=== PATIENT | female | born 1975 | race Caucasian/White ===

== ENCOUNTER 2016-09-22 13:27 | Emergency (ER) | payer OTHER ==
[2016-09-22 13:59] VITALS: BMI 26.6
[2016-09-22 14:05] VITALS: BP 110/70; PULSE 86; RESP 18; TEMP 98.8; O2SAT 97
[2016-09-22 14:52] LABS: RBC URINE 1 /hpf (0-3); URINE BACTERIA RARE (<OCC); URINE BILIRUBIN NEGATIVE (NEGATIVE); URINE BLOOD 1+ (NEGATIVE); URINE COLOR Yellow (YELLOW); URINE GLUCOSE (UA) NORMAL (Normal); URINE KETONE NEGATIVE (NEGATIVE); URINE LEUKOCYTE ESTERASE NEG Leu/uL (Negative); URINE PROTEIN NEGATIVE (NEGATIVE); URINE UROBILINOGEN NORMAL mg/dL (0.2-1.0); WBC URINE 1 /hpf (0-5)
--- NOTE | 2016-09-22 15:02 | C.PDOC ---
History Of Present Illness The patient, a 40 y/o female, presents to the ED for evaluation of lower back pain which began around 1 week ago. Patient states the pain is worse on the left side of her back and is non-radiating. Patient also reports increased urinary frequency and notes her urine appears darker than usual. She denies fever, chills, dysuria, recent falls, urinary/bowel incontinence, and extremity numbness/weakness. Time Seen by Provider: 09/22/16 14:08 Chief Complaint (Nursing): Back Pain History Per: Patient History/Exam Limitations: no limitations Onset/Duration Of Symptoms: Other (around 1 week ) Current Symptoms Are (Timing): Still Present Quality Of Discomfort: "Pain" Previous Symptoms: Back Pain Associated Symptoms: denies: Incontinence, New Weakness, New Numbness Additional History Per: Patient Past Medical History Reviewed: Historical Data, Nursing Documentation, Vital Signs Vital Signs: Last Vital Signs Temp 98.8 F 09/22/16 14:00 Pulse 86 09/22/16 14:00 Resp 18 09/22/16 14:00 BP 110/70 09/22/16 14:00 Pulse Ox 97 09/22/16 16:50 - Medical History PMH: Denies: Chronic Kidney Disease - [facility] Procedures INJECT/INFUSE NEC (02/26/13) RESECTION OF BI FALLOPIAN TUBE, VIA OPENING W PERC ENDO (01/23/16) RESECTION OF BILATERAL OVARIES, VIA OPENING W PERC ENDO (01/23/16) RESECTION OF UTERUS, VIA OPENING W PERC ENDO (01/23/16) Family History: States: Unknown Family Hx - Social History Hx Tobacco Use: No Hx Alcohol Use: No Hx Substance Use: No - Immunization History Hx Tetanus Toxoid Vaccination: No Hx Influenza Vaccination: No Hx Pneumococcal Vaccination: No Review Of Systems Except As Marked, All Systems Reviewed And Found Negative. Constitutional: Negative for: Fever, Chills Genitourinary: Positive for: Frequency, Other ("dark" urine ). Negative for: Dysuria Musculoskeletal: Positive for: Back Pain (lower, left>right) Neurological: Negative for: Weakness, Numbness Physical Exam - Physical Exam Appears: Non-toxic, No Acute Distress Skin: Normal Color, Warm, Dry Head: Atraumatic, Normacephalic Eye(s): bilateral: Normal Inspection Oral Mucosa: Moist Neck: Normal ROM, Supple Chest: Symmetrical, No Deformity, No Tenderness Cardiovascular: Rhythm Regular, No Murmur Respiratory: Normal Breath Sounds, No Rales, No Rhonchi, No Wheezing Gastrointestinal/Abdominal: Soft, No Tenderness, No Guarding, No Rebound Back: No CVA Tenderness, Paraspinal Tenderness (mild paralumbar tenderness on palpation, left>right) Extremity: Normal ROM, Capillary Refill (less than 2 seconds) Pulses: Left Dorsalis Pedis: Normal, Right Dorsalis Pedis: Normal Neurological/Psych: Oriented x3, Normal Speech, Normal Cognition, Normal Motor, Normal Sensation Gait: Steady ED Course And Treatment O2 Sat by Pulse Oximetry: 97 (on RA) Pulse Ox Interpretation: Normal Medical Decision Making Medical Decision Making: Impression: 40 y.o female with low back pain for one week Differential diagnosis: cystitis, pyelonephritis, muscular strain, herniated disk Plan: * UA * Toradol Progress: UA reviewed and negative. On re-examination, patient is resting comfortably in no acute distress. Patient reports improvement of symptoms. Patient feels comfortable going home and will be discharged. Patient given follow up instructions. Instructed to return to ER if symptoms worsen or new symptoms arise. Disposition Counseled Patient/Family Regarding: Need For Followup, Rx Given - Disposition Referrals: Marbella De La Torre MD [Staff Provider] - Disposition: HOME/ ROUTINE Disposition Time: 15:02 Condition: IMPROVED Additional Instructions: Los resultados de avina orina fueron normales, sin infeccin. Por favor, tome naproxeno y flexeril para avina dolor de espalda muscular. 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 - Scribe Statement The provider has reviewed the documentation as recorded by the Scribe (Ce Germain) All medical record entries made by the Scribe were at my direction and personally dictated by me. I have reviewed the chart and agree that the record accurately reflects my personal performance of the history, physical exam, medical decision making, and the department course for this patient. I have also personally directed, reviewed, and agree with the discharge instructions and disposition.
== END 2016-09-22 15:28 | disposition home or self-care (01) ==
LOC: C.ER 13:27
DX: M54.5 Low back pain (principal)
CPT/HCPCS: 81001; 84703; 96372; 99284; J1885

== ENCOUNTER 2017-04-22 17:41 | Emergency (ER) | payer OTHER ==
[2017-04-22 17:41] VITALS: BMI 32.7
[2017-04-22 17:50] VITALS: BP 128/90; PULSE 83; RESP 20; TEMP 98.5; O2SAT 99
--- NOTE | 2017-04-22 19:02 | C.PDOC ---
History Of Present Illness 41 yr old female presents to the ER with complaints of headache since waking up this morning. Patient states she woke up with swelling to the right eye and is associated iwth frontal headache. Patient reports similar headache 3 weeks ago which lasted 1 day and resolved on its own. However, patient states this headache is lasting longer. Patient denies trauma, fever, vision changes, cough , nausea, vomiting, dizziness, weakness or numbness. Time Seen by Provider: 04/22/17 18:19 Chief Complaint (Nursing): Headache History Per: Patient History/Exam Limitations: no limitations Onset/Duration Of Symptoms: Days Past Medical History Reviewed: Historical Data, Nursing Documentation, Vital Signs Vital Signs: Last Vital Signs Temp 98.5 F 04/22/17 17:49 Pulse 83 04/22/17 17:49 Resp 20 04/22/17 17:49 BP 128/90 04/22/17 17:49 Pulse Ox 99 04/22/17 21:32 - [facility] Procedures INJECT/INFUSE NEC (02/26/13) RESECTION OF BI FALLOPIAN TUBE, VIA OPENING W PERC ENDO (01/23/16) RESECTION OF BILATERAL OVARIES, VIA OPENING W PERC ENDO (01/23/16) RESECTION OF UTERUS, VIA OPENING W PERC ENDO (01/23/16) Family History: States: No Known Family Hx - Social History Hx Tobacco Use: No Hx Alcohol Use: No Hx Substance Use: No - Immunization History Hx Tetanus Toxoid Vaccination: No Hx Influenza Vaccination: No Hx Pneumococcal Vaccination: No Review Of Systems Except As Marked, All Systems Reviewed And Found Negative. Constitutional: Negative for: Fever Eyes: Negative for: Vision Change Respiratory: Negative for: Cough Gastrointestinal: Negative for: Nausea, Vomiting Neurological: Positive for: Headache. Negative for: Weakness, Numbness, Dizziness Physical Exam - Physical Exam Appears: Non-toxic, No Acute Distress Skin: Warm, Dry, No Rash Head: Atraumatic, Normacephalic Eye(s): bilateral: PERRL, EOMI, right: Other (Stye. No evidence of swelling or infection. No foreign body seen) Oral Mucosa: Moist Neck: Normal, Normal ROM, Supple Chest: Symmetrical, No Tenderness Cardiovascular: Rhythm Regular, No Friction Rub, No Murmur Respiratory: Normal Breath Sounds, No Rales, No Rhonchi, No Stridor, No Wheezing Gastrointestinal/Abdominal: Soft, No Tenderness Back: Normal Inspection Extremity: Normal ROM, No Swelling Neurological/Psych: Oriented x3, Normal Speech, Normal Cranial Nerves, Normal Motor, Normal Sensation Gait: Steady ED Course And Treatment O2 Sat by Pulse Oximetry: 99 (RA) Pulse Ox Interpretation: Normal Medical Decision Making Medical Decision Making: PLAN: * CT - Head * Tylenol PO CT HEad was unremarkable. Patient was informed that the eye exam appears normal and she states that the sty is chronic. Patient states that the tylenol only helped mildly for the pain. Toradol IM and reglan PO ordered. On second re-exam, the patient reports improvement of symptoms. Lungs are CTA, heart is RRR, abdomen is soft, non-tender and patient is tolerating PO well. ambulatory in the ED steady gait, Follow up with the medical doctor within 1-2 days. Return if worsened. Disposition - Disposition Referrals: Marbella De La Torre MD [Staff Provider] - Disposition: HOME/ ROUTINE Disposition Time: 21:24 Condition: GOOD Additional Instructions: Follow up with the Urologist within 1-2 days. Return if worsened. 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 - Scribe Statement The provider has reviewed the documentation as recorded by the Scribe Anna Astorga All medical record entries made by the Scribe were at my direction and personally dictated by me. I have reviewed the chart and agree that the record accurately reflects my personal performance of the history, physical exam, medical decision making, and the department course for this patient. I have also personally directed, reviewed, and agree with the discharge instructions and disposition.
--- NOTE | 2017-04-22 20:36 | CT ---
EXAM: CT Head Without Intravenous Contrast CLINICAL HISTORY: 41 years old, female; Pain; Headache; Headache not specified TECHNIQUE: Axial computed tomography images of the head/brain without intravenous contrast. This CT exam was performed using one or more of the following dose reduction techniques: automated exposure control, adjustment of the mA and/or kV according to patient size, and/or use of iterative reconstruction technique. EXAM DATE/TIME: 04/22/2017 6:40 PM COMPARISON: There are no prior studies for comparison. FINDINGS: Brain: Ventricles are normal in size and configuration. There is no midline shift. There are no intra-axial or extra-axial mass lesions or areas of hemorrhage. There are no abnormal fluid collections. Encarnacion-white differentiation is maintained. Ventricles: See above. Bones: Cranial vault is intact. Soft tissues: unremarkable Sinuses: There is no acute sinusitis. Ears and mastoids: Middle ears and mastoids are unremarkable Orbits: Orbital contents are unremarkable. IMPRESSION: No acute intracranial abnormality
== END 2017-04-22 21:37 | disposition home or self-care (01) ==
LOC: C.ER 17:41
DX: G43.909 Migraine, unspecified, not intractable, without status migrainosus (principal)
CPT/HCPCS: 70450; 96372; 99284; J1885

== ENCOUNTER 2017-06-19 07:24 | Inpatient (IN) | payer OTHER ==
[2017-05-29 09:19] VITALS: BMI 33.5
--- NOTE | 2017-06-19 01:13 | CP.PCM.HP ---
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 Risks, benefits and alternatives has been discussed and the Pt has obtained a consent. Present on Admission - Present on Admission Any Indicators Present on Admission: No Past Patient History - Infectious Disease Hx of Infectious Diseases: None - Past Medical History & Family History Past Medical History?: Yes - Past Social History Smoking Status: Never Smoked - CARDIAC Hx Cardiac Disorders: No - PULMONARY Hx Respiratory Disorders: No - NEUROLOGICAL Hx Neurological Disorder: No - HEENT Hx HEENT Problems: No - RENAL Hx Chronic Kidney Disease: No - ENDOCRINE/METABOLIC Hx Endocrine Disorders: No - HEMATOLOGICAL/ONCOLOGICAL Hx Blood Disorders: No - INTEGUMENTARY Hx Dermatological Problems: No - MUSCULOSKELETAL/RHEUMATOLOGICAL Hx Musculoskeletal Disorders: Yes Other/Comment: PER DR. HUANG'S NOTES: "HAD CT SCAN DONE AT [facility] INDICATING FLUID FILLED HERNIA SAC." - GASTROINTESTINAL Hx Gastrointestinal Disorders: Yes Other/Comment: LEFT INGUINAL HERNIA - GENITOURINARY/GYNECOLOGICAL Hx Genitourinary Disorders: Yes Hx Urinary Tract Infection: Yes ( 3 months ago) Other/Comment: fibroma - removed : 2 Para: 2 - PSYCHIATRIC Hx Psychophysiologic Disorder: No Hx Substance Use: No - SURGICAL HISTORY Hx Surgeries: Yes (LAVH) Hx Herniorrhaphy: Yes (left INGUINAL HERNIA REPAIR) Hx Hysterectomy: Yes (2015) - ANESTHESIA Hx Anesthesia: Yes Hx Anesthesia Reactions: No Hx Malignant Hyperthermia: No Has any member of the family had a problem w/ anesthesia?: No Meds Home Medications: Home Medication List Medication Instructions Recorded Confirmed Type Ibuprofen [Motrin Tab] 600 mg PO Q6H PRN #28 tab 06/21/17 Rx oxyCODONE/Acetaminophen [Percocet 1 tab PO Q4H PRN #20 tab 06/21/17 Rx 5/325 mg Tab] Allergies/Adverse Reactions: Allergies Allergy/AdvReac Type Severity Reaction Status Date / Time No Known Allergies Allergy Verified 04/22/17 17:49 Physical Exam - Constitutional Appears: Well - Respiratory Exam Respiratory Exam: Clear to Auscultation Bilateral, NORMAL BREATHING PATTERN - Cardiovascular Exam Cardiovascular Exam: REGULAR RHYTHM, RRR - GI/Abdominal Exam GI & Abdominal Exam: Normal Bowel Sounds, Soft - Back Exam Back exam: NORMAL INSPECTION - Neurological Exam Neurological exam: Alert, Oriented x3 Results - Labs Result Diagrams: 06/20/17 06:54 06/20/17 06:54 Assessment & Plan (1) Vaginal vault prolapse Status: Acute (2) Cystocele Status: Acute (3) Rectocele Status: Acute (4) Status post vaginal hysterectomy Status: Acute - Assessment and Plan (Free Text) Plan: 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 - Date & Time Date: 06/19/17 Time: 07:30 Decision To Admit - Pt Status Changed To: Hospital Disposition Of: Inpatient - Admit Certification Admit to Inpatient:: After my assessment, the patient will require hospitalization for at least two midnights. This is because of the severity of symptoms shown, intensity of services needed, and/or the medical risk in this patient being treated as an outpatient. - InPatient: Physician Admission Certification:: reena - . 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
[2017-06-19] MEDS ORDERED: Bacitracin 50,000 UNIT in Sodium Chloride 0.9% Irrig 1,000 ML IR SCH (09:00)
[2017-06-19] MEDS ORDERED: Vasopressin 20 Units/ml Inj ONE ×2 (09:12→11:15)
[2017-06-19] MEDS ORDERED: Midazolam 2 MG/2 ML VIAL ONE (09:38)
[2017-06-19] MEDS ORDERED: Succinylcholine Chloride 20 mg/ml Syr (5 ml) IV ONE (09:39)
[2017-06-19] MEDS ORDERED: Lidocaine Hydrochloride 5 ML INJ ONE (09:39)
[2017-06-19] MEDS ORDERED: Propofol 10 mg/ml Inj (20 ML) ONE (09:39)
[2017-06-19] MEDS ORDERED: Rocuronium 10 mg/ml (5 ml) ONE (09:39)
[2017-06-19] MEDS ORDERED: Lactated Ringer's 1,000 ML IV ONE ×4 (09:46→15:00)
[2017-06-19] MEDS: cefOXitin IV 2 gm in Dextrose 2 GM/50 ML BAG IVPB ONE ×2 (10:10→10:24)
[2017-06-19] MEDS ORDERED: Clindamycin 2% Vaginal Cream(40 gm) VAG ONE (11:00)
[2017-06-19] MEDS ORDERED: Morphine 4 MG/ML VIAL ONE (12:05)
[2017-06-19] MEDS: HYDROmorphone 0.5 mg/0.5 ml ISec IVP PRN ×3 (12:54→14:20)
[2017-06-19] MEDS ORDERED: HYDROmorphone 0.5 mg/0.5 ml ISec ONE ×2 (14:20→15:29)
[2017-06-19] MEDS ORDERED: Clindamycin 2% Vaginal Cream(40 gm) ONE (16:27)
[2017-06-19] MEDS ORDERED: Oxycodone/Acetaminophen 5/325 mg Tab PO PRN (16:29)
[2017-06-19] MEDS ORDERED: Simethicone 80 mg Chewtab PO PRN (16:32)
[2017-06-19] MEDS ORDERED: Sodium Chloride 0.9% 1,000 ML IV SCH (16:45)
[2017-06-19] MEDS ORDERED: DiphenhydrAMINE 50 mg/ml Inj IVP PRN (17:30)
[2017-06-19] MEDS ORDERED: Naloxone 0.4 mg/ml Inj (Adult) IVP PRN (17:30)
[2017-06-19] MEDS ORDERED: Morphine Monoject Barrel PCA 1mg/ml IV PRN (17:30)
[2017-06-19] MEDS: Lactated Ringer's 1,000 ML IV SCH (18:38)
[2017-06-19] MEDS: cefOXitin IV 2 gm in Dextrose 2 GM/50 ML BAG IVPB SCH (19:39)
--- NOTE | 2017-06-19 20:06 | PCM.SURG1 ---
Surgeon's Initial Post Op Note - Surgeon's Notes Surgeon: Dr Hamilton Ob Gyn Physician Assistant: Lexi Yuan Type of Anesthesia: General Endo Anesthesia Administered By: SHAJI Ring Supervised by Dr Garcia Pre-Operative Diagnosis: Vaginal Vault Prolapse with cystocele and rectocele. Operative Findings: Mild prolapse of the vaginal vault with cystocele and rectocele. Redundant posterior vaginal wall mucosa. IVF intake: 2500mls. EBL - 100mls. urine - 200ml Post-Operative Diagnosis: Same as preop diagnosis Operation Performed: Anterior Vaginal Wall Repair with Kellys Plication,. Posterior Vaginal wall Repair with Perineorrhaphy. Cystoscopy Specimen/Specimens Removed: None Estimated Blood Loss: EBL {In ML}: 100 Blood Products Given: N/A Post-Op Condition: Good Date of Surgery/Procedure: 06/19/17 Time of Surgery/Procedure: 12:15
[2017-06-20] MEDS: cefOXitin IV 2 gm in Dextrose 2 GM/50 ML BAG IVPB SCH ×3 (00:55→17:22)
[2017-06-20 01:41] VITALS: RESP 20
[2017-06-20 07:10] LABS: BASO % 0.3 % (0.0-2.0); EOS # 0.2 K/uL (0.0-0.7); EOS % 1.4 % (0.0-4.0); HEMATOCRIT 36.3 % (34.0-47.0); LYMPH # 2.6 K/uL (1.0-4.3); LYMPH % 23.9 % (20.0-40.0); MEAN CELL VOLUME 87.3 fL (81.0-99.0); MEAN CORPUSCULAR HEMOGLOBIN 30.4 pg (27.0-31.0); MEAN CORPUSCULAR HGB CONC 34.8 g/dL (33.0-37.0); MONO # 0.6 K/uL (0.0-0.8); MONO % 5.6 % (0.0-10.0); NRBC % 0.1 % (0.0-2.0); RED CELL DISTRIBUTION WIDTH 12.6 % (11.5-14.5)
[2017-06-20 07:17] LABS: WHITE BLOOD COUNT 10.7 K/uL (4.8-10.8)
[2017-06-20 07:20] LABS: CHLORIDE 100 mmol/L (98-107); SODIUM 134 mmol/L (132-148)
[2017-06-20 07:21] LABS: POTASSIUM 4.4 mmol/L (3.6-5.2)
[2017-06-20 07:22] LABS: GFR AFRICAN-AMERICAN > 60
[2017-06-20 07:23] LABS: ALKALINE PHOSPHATASE 47 U/L (38-126); AST/SGOT 20 U/L (14-36); BILIRUBIN,TOTAL 0.7 mg/dL (0.2-1.3); BLOOD UREA NITROGEN 6 mg/dL (7-17); CARBON DIOXIDE 27 mmol/L (22-30); GLUCOSE,RANDOM 97 mg/dL (65-105); TOTAL PROTEIN 6.5 g/dL (6.3-8.3)
[2017-06-20 07:24] LABS: ALT/SGPT 25 U/L (9-52); CALCIUM 8.4 mg/dl (8.6-10.4)
[2017-06-20] MEDS: Lactated Ringer's 1,000 ML IV SCH ×2 (10:29→12:45)
[2017-06-20] MEDS: Oxycodone/Acetaminophen 5/325 mg Tab PO PRN ×3 (10:31→20:18)
--- NOTE | 2017-06-20 16:08 | CP.PCM.PN ---
Subjective - Date & Time of Evaluation Date of Evaluation: 06/20/17 Time of Evaluation: 17:16 - Subjective Subjective: COOK RELIEF Progress Note: Patient was seen and examined at bedside. Patient states she continues to have pain and vaginal discomfort. Patient states she had the almonte removed and she is having the feeling to urinate. Patient denies nausea or vomiting. Objective - Vital Signs/Intake and Output Vital Signs (last 24 hours): Temp Pulse Resp BP Pulse Ox 98.7 F 83 20 103/68 98 06/20/17 07:00 06/20/17 07:00 06/20/17 07:00 06/20/17 07:00 06/20/17 07:00 Intake and Output: 06/20/17 06/20/17 06:59 18:59 Intake Total 1350 300 Output Total 2300 Balance -950 300 - Medications Medications: Current Medications Diphenhydramine HCl (Benadryl) 25 mg IVP Q6 PRN PRN Reason: Itching / Pruritus Cefoxitin Sodium (Mefoxin Iv 2 Gm Duplex) 2 gm in 50 mls @ 50 mls/hr IVPB Q8H [facility] Last Admin: 06/20/17 08:52 Dose: 50 mls/hr Lactated Ringer's (Lactated Ringer's) 1,000 mls @ 100 mls/hr IV .Q10H [facility] Last Admin: 06/20/17 10:29 Dose: 100 mls/hr Ibuprofen (Motrin Tab) 600 mg PO Q4H PRN PRN Reason: Pain, Mild (1-3) Last Admin: 06/19/17 19:42 Dose: 600 mg Naloxone HCl (Narcan) 0.04 mg IVP Q2M PRN PRN Reason: To reverse sedation Ondansetron HCl (Zofran Inj) 4 mg IVP Q8H PRN PRN Reason: Nausea/Vomiting Oxycodone/Acetaminophen (Percocet 5/325 Mg Tab) 1 tab PO Q4H PRN PRN Reason: Pain, moderate (4-7) Stop: 06/22/17 16:30 Oxycodone/Acetaminophen (Percocet 5/325 Mg Tab) 2 tab PO Q4H PRN PRN Reason: Pain, severe (8-10) Stop: 06/22/17 16:31 Last Admin: 10/06/17 15:24 Dose: 2 tab Simethicone (Mylicon Chew Tab) 80 mg PO Q6H PRN PRN Reason: GI distress - Labs Labs: 06/20/17 06:54 06/20/17 06:54 - Constitutional Appears: No Acute Distress - Head Exam Head Exam: ATRAUMATIC, NORMAL INSPECTION, NORMOCEPHALIC - Eye Exam Eye Exam: EOMI, Normal appearance, PERRL Pupil Exam: NORMAL ACCOMODATION - ENT Exam ENT Exam: Mucous Membranes Moist - Respiratory Exam Respiratory Exam: Clear to Ausculation Bilateral, NORMAL BREATHING PATTERN - GI/Abdominal Exam GI & Abdominal Exam: Soft, Normal Bowel Sounds. absent: Tenderness - Exam Additional comments: Vaginal packing removed - small amount of vaginal bleeding - Back Exam Back Exam: NORMAL INSPECTION - Neurological Exam Neurological Exam: Alert, Awake, Oriented x3 - Psychiatric Exam Psychiatric exam: Normal Affect, Normal Mood - Skin Skin Exam: Normal Color, Warm Assessment and Plan - Assessment and Plan (Free Text) Assessment: 1.) Vaginal hysterectomy - s/p post op day 1 - H/H: 12.6/36.3 - Almonte removed - Vaginal packing removed - pad in place - small amount of spotting - diet advanced - Continue pain management Case discussed with Dr. Alfonso Fernandez PGY-1
[2017-06-21] MEDS: cefOXitin IV 2 gm in Dextrose 2 GM/50 ML BAG IVPB SCH ×2 (00:06→08:45)
[2017-06-21] MEDS: Oxycodone/Acetaminophen 5/325 mg Tab PO PRN ×3 (00:12→11:12)
[2017-06-21 08:34] VITALS: BP 106/75; PULSE 79; TEMP 98.1; O2SAT 95
--- NOTE | 2017-06-21 10:39 | CP.PCM.DIS ---
Provider - Provider Date of Admission: 06/19/17 15:21 Attending physician: Zaire Hamilton Time Spent in preparation of Discharge (in minutes): 40 Hospital Course - Lab Results Lab Results: Most Recent Lab Values WBC 10.7 K/uL (4.8-10.8) D 06/20/17 06:54 RBC 4.15 Mil/uL (3.80-5.20) 06/20/17 06:54 Hgb 12.6 g/dL (11.0-16.0) D 06/20/17 06:54 Hct 36.3 % (34.0-47.0) 06/20/17 06:54 MCV 87.3 fL (81.0-99.0) 06/20/17 06:54 MCH 30.4 pg (27.0-31.0) 06/20/17 06:54 MCHC 34.8 g/dL (33.0-37.0) 06/20/17 06:54 RDW 12.6 % (11.5-14.5) 06/20/17 06:54 Plt Count 223 K/uL (130-400) 06/20/17 06:54 MPV 10.0 fL (7.2-11.7) 06/20/17 06:54 Neut % (Auto) 68.8 % (50.0-75.0) 06/20/17 06:54 Lymph % (Auto) 23.9 % (20.0-40.0) 06/20/17 06:54 [place] % (Auto) 5.6 % (0.0-10.0) 06/20/17 06:54 Eos % (Auto) 1.4 % (0.0-4.0) 06/20/17 06:54 Baso % (Auto) 0.3 % (0.0-2.0) 06/20/17 06:54 Neut # 7.3 K/uL (1.8-7.0) H 06/20/17 06:54 Lymph # 2.6 K/uL (1.0-4.3) 06/20/17 06:54 [place] # 0.6 K/uL (0.0-0.8) 06/20/17 06:54 Eos # 0.2 K/uL (0.0-0.7) 06/20/17 06:54 Baso # 0.0 K/uL (0.0-0.2) 06/20/17 06:54 Sodium 134 mmol/L (132-148) 06/20/17 06:54 Potassium 4.4 mmol/L (3.6-5.2) 06/20/17 06:54 Chloride 100 mmol/L (98-107) 06/20/17 06:54 Carbon Dioxide 27 mmol/L (22-30) 06/20/17 06:54 Anion Gap 11 (10-20) 06/20/17 06:54 BUN 6 mg/dL (7-17) L 06/20/17 06:54 Creatinine 0.6 mg/dL (0.7-1.2) L 06/20/17 06:54 Est GFR ( Amer) > 60 06/20/17 06:54 Est GFR (Non-Af Amer) > 60 06/20/17 06:54 Random Glucose 97 mg/dL (65-105) 06/20/17 06:54 Calcium 8.4 mg/dl (8.6-10.4) L 06/20/17 06:54 Total Bilirubin 0.7 mg/dL (0.2-1.3) 06/20/17 06:54 AST 20 U/L (14-36) 06/20/17 06:54 ALT 25 U/L (9-52) 06/20/17 06:54 Alkaline Phosphatase 47 U/L (38-126) 06/20/17 06:54 Total Protein 6.5 g/dL (6.3-8.3) 06/20/17 06:54 Albumin 3.3 g/dL (3.5-5.0) L D 06/20/17 06:54 Globulin 3.2 gm/dL (2.2-3.9) 06/20/17 06:54 Albumin/Globulin Ratio 1.0 (1.0-2.1) 06/20/17 06:54 Blood Type A POSITIVE 06/19/17 08:32 Antibody Screen Negative 06/19/17 08:32 - Hospital Course Hospital Course: 41yo Para 2 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 Risks, benefits and alternatives has been discussed and the Pt has obtained a consent. Hospital Course: Anterior Vaginal Wall Repair with Kellys Plication,. Posterior Vaginal wall Repair with Perineorrhaphy. Cystoscopy performed on 06/19/[address] Hamilton. Patient was seen and examined at bedside. Patient states she continues to have pain but it is much better than yesterday. She states she is having light vaginal bleeding. Patient states she has been voiding on her own and has passed flatus. Patient denies nausea or vomiting. Patient stable to be discharged home per Dr. Hamilton. Patient to continue home medications. Patient to start new medications: Percocet every 4 hours as needed for severe pain. Motrin 600mg every 6 hours as needed for mild to moderate pain. Patient instructed to place a large tampon inside a condom once daily. Patient instructed to remove the tampon with the condom at night before going to sleep. Patient instructed to follow up with Dr. Hamilton in the clinic in one week. Please call [phone] to make an appointment. Discharge Exam - Head Exam Head Exam: ATRAUMATIC, NORMAL INSPECTION, NORMOCEPHALIC - Eye Exam Eye Exam: EOMI, Normal appearance - ENT Exam ENT Exam: Mucous Membranes Moist - Respiratory Exam Respiratory Exam: NORMAL BREATHING PATTERN - Cardiovascular Exam Cardiovascular Exam: REGULAR RHYTHM, RRR - GI/Abdominal Exam GI & Abdominal Exam: Normal Bowel Sounds, Soft. absent: Tenderness - Extremities Exam Extremities exam: normal inspection - Neurological Exam Neurological exam: Alert, Oriented x3 - Psychiatric Exam Psychiatric exam: Normal Affect, Normal Mood - Skin Skin Exam: Normal Color, Warm Discharge Plan - Discharge Medications Prescriptions: Ibuprofen [Motrin Tab] 600 mg PO Q6H PRN #28 tab PRN Reason: Pain, Mild (1-3) oxyCODONE/Acetaminophen [Percocet 5/325 mg Tab] 1 tab PO Q4H PRN #20 tab PRN Reason: Pain, Moderate (4-7) - Follow Up Plan Condition: GOOD Disposition: HOME/ ROUTINE
--- NOTE | 2017-06-22 03:12 | OP ---
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 PROCEDURES DONE: Anterior and posterior colporrhaphy with Ivone's plication, posterior vaginal wall repair with perineorrhaphy and cystoscopy performed. SURGEON: Dr. Hamilton. ASSISTANTS: Dr. Alvarenga and Nafisa Fernandez, family practice resident. Assistance to this procedure was needed for exposure of tissues and to help in the conduct of the surgery. The assistants remained with the surgery throughout its entire length. TYPE OF ANESTHESIA: General endotracheal. ANESTHESIA ADMINISTERED BY: María Elena IGRARD, supervised by Dr. Howard Garcia. FINDINGS: Mild prolapse of the vaginal vault with prominent cystocele and rectocele. There were redundant posterior vaginal wall mucosa. IV FLUID INTAKE: 2500 mL. ESTIMATED BLOOD LOSS: 100 mL. URINE OUTPUT: 100 mL of clear urine. COMPLICATIONS: There were no complications. DESCRIPTION OF PROCEDURE: After going through the risks, benefits and alternatives associated with the procedure and having all her questions answered, the patient decided to proceed with the procedure and had a consent signed. The patient was sent to the OR with IV running and Gutiérrez catheter in place. The patient was placed in a supine position on the OR table. General anesthesia was conducted without any difficulty. The patient was repositioned in the dorsal lithotomy position in an Romel stirrups. The patient was then prepped and draped in the usual sterile fashion. A weighted speculum was placed in the vagina to help in exposing the vaginal wall. The vaginal vault was identified after lifting the anterior wall of the vagina with an L-shaped retractor. The two ends of the vaginal vault were held with Allis forceps and a region in the midline with just about 1 cm from the urethral orifice was also tacked with another Allis forceps. The area between these 3 Allis forceps was used to tack the vaginal mucosa was incised in a triangular fashion. The underlying vesical fascia was exposed at this time and was peeled from the overlying vaginal mucosa. The lining of bladder was also peeled from the lateral aspect of the incision. Using 2-0 Vicryl sutures, the perivesical fascia on both sides were brought together over the urethra. The another thickened layer was done to strand in the bladder base bringing the perivesical fascia over the bladder to form as a base. Once this procedure had been concluded, the 2 sides of the vaginal mucosa were brought together using 0 Vicryl. This was closed in the continuous layer so the vaginal mucosa had been closed. Attention was turned to the posterior vaginal wall which had a prominent rectocele. An incision was made between 2 Allis clamps placed on the posterior fourchette. The posterior vaginal mucosa was undermined using a Metzenbaum scissors being careful to separate it from the underlying rectum. The separation of the vaginal mucosa from the underlying rectovaginal fascia was aided with the use of a free 4 x 4 gauze. It was noted during the dissection that there was a defect in the rectovaginal fascia. The defect in the fascia was repaired using 0 Vicryl sutures. The incision of the vaginal mucosa from the midpoint of the fourchette to a region of about long term the length of the vagina in the midline was made. Additional defects in the rectal vagina fascia were identified and repaired in the similar fashion using 0 Vicryl. Once the procedure had been concluded, a portion of the redundant posterior vaginal mucosa was excised and was closed in the continuous fashion from the midpoint of the vaginal canal to the vaginal fourchette. The superficial transverse perineal muscles were apposed to other during the closure of the vaginal mucosa to strengthen the perineum. The perineal skin was closed with subcuticular sutures. Once the procedure was concluded, bleeding points were inspected for hemostasis. Once hemostasis was assured, cystoscopy was performed using a 30-degree lens. Both ureteral orifices were found and were found to produce of urine which shows patency of the ureter. There was no evidence of damage to the bladder mucosa. Once the procedure had been completed, all the instruments were taken out of vagina. The patient was replaced in a supine position and was sent to the recovery room awake and in stable condition. All counts of instruments, laparotomy pads and gauze used were correct x3. Zaire Hamilton MD
== END 2017-06-21 14:38 | disposition home or self-care (01) | DRG 356 ==
LOC: C.SDS 07:24 → C.9S 15:21 → C.6T 18:03
PROVIDERS: ADMIT Obstetrics & Gynecology; ATTEND Obstetrics & Gynecology
PROC: 0TJB8ZZ Inspection of Bladder, Via Natural or Artificial Opening Endoscopic (ICD-10-PCS; 2017-06-19)
PROC: 0JQC0ZZ Repair Pelvic Region Subcutaneous Tissue and Fascia, Open Approach (ICD-10-PCS; principal; 2017-06-19 09:30)
DX: N99.3 Prolapse of vaginal vault after hysterectomy (principal); N81.10 Cystocele, unspecified; N81.6 Rectocele; K40.90 Unilateral inguinal hernia, without obstruction or gangrene, not specified as recurrent; Z87.440 Personal history of urinary (tract) infections; Z90.710 Acquired absence of both cervix and uterus

== ENCOUNTER 2017-06-26 19:50 | Emergency (ER) | payer OTHER ==
[2017-06-26 19:50] VITALS: BMI 33.5
[2017-06-26 20:47] VITALS: O2SAT 97
[2017-06-26 21:52] LABS: RBC URINE 6 /hpf (0-3); URINE BACTERIA RARE (<OCC); URINE BILIRUBIN NEGATIVE (NEGATIVE); URINE BLOOD 2+ (NEGATIVE); URINE COLOR Straw (YELLOW); URINE GLUCOSE (UA) NORMAL (Normal); URINE KETONE NEGATIVE (NEGATIVE); URINE LEUKOCYTE ESTERASE 2+ Leu/uL (Negative); URINE PROTEIN NEGATIVE (NEGATIVE); URINE UROBILINOGEN NORMAL mg/dL (0.2-1.0); WBC URINE 18 /hpf (0-5)
[2017-06-26] MEDS ORDERED: Sodium Chloride 0.9% 1,000 ML IV ONE (22:34)
[2017-06-26] MEDS ORDERED: Sodium Chloride 0.9% 1,000 ML ONE (22:45)
[2017-06-26 22:46] LABS: BASO # 0.1 K/uL (0.0-0.2); BASO % 0.5 % (0.0-2.0); EOS # 0.2 K/uL (0.0-0.7); EOS % 2.4 % (0.0-4.0); HEMATOCRIT 39.6 % (34.0-47.0); LYMPH # 3.1 K/uL (1.0-4.3); LYMPH % 32.6 % (20.0-40.0); MEAN CORPUSCULAR HEMOGLOBIN 29.8 pg (27.0-31.0); MEAN CORPUSCULAR HGB CONC 34.3 g/dL (33.0-37.0); MEAN PLATELET VOLUME 9.4 fL (7.2-11.7); MONO # 0.4 K/uL (0.0-0.8); MONO % 4.7 % (0.0-10.0); RED CELL DISTRIBUTION WIDTH 12.3 % (11.5-14.5); WHITE BLOOD COUNT 9.6 K/uL (4.8-10.8)
[2017-06-26 22:54] LABS: CHLORIDE 99 mmol/L (98-107); POTASSIUM 4.2 mmol/L (3.6-5.2); SODIUM 135 mmol/L (132-148)
[2017-06-26 22:56] LABS: GFR AFRICAN-AMERICAN > 60
[2017-06-26 22:57] LABS: ALB/GLOB RATIO 1.1 (1.0-2.1); ALKALINE PHOSPHATASE 56 U/L (38-126); ALT/SGPT 36 U/L (9-52); AST/SGOT 15 U/L (14-36); BILIRUBIN,TOTAL 0.5 mg/dL (0.2-1.3); BLOOD UREA NITROGEN 13 mg/dL (7-17); CALCIUM 9.6 mg/dl (8.6-10.4); CARBON DIOXIDE 25 mmol/L (22-30); GLUCOSE,RANDOM 100 mg/dL (65-105); TOTAL PROTEIN 8.5 g/dL (6.3-8.3)
--- NOTE | 2017-06-26 23:45 | C.PDOC ---
History Of Present Illness Pt had surgery for a vaginal prolapse and has been having pain since then. Pt ran out of pain meds. Time Seen by Provider: 06/26/17 22:18 Chief Complaint (Nursing): Abdominal Pain History Per: Patient Onset/Duration Of Symptoms: Days (6) Current Symptoms Are (Timing): Still Present Severity: Moderate Location Of Pain/Discomfort: Suprapubic, Other (Vagina) Quality Of Discomfort: "Pain" Associated Symptoms: Urinary Symptoms Alleviating Factors: None Additional History Per: Prior Records Past Medical History Reviewed: Historical Data, Nursing Documentation, Vital Signs Vital Signs: Last Vital Signs Temp 98.5 F 06/26/17 20:44 Pulse 94 H 06/26/17 20:44 Resp 16 06/26/17 20:44 BP 119/82 06/26/17 20:44 Pulse Ox 97 06/26/17 20:44 - Medical History PMH: Anemia (Iron difficiency) Surgical History: Hernia Repair Other Surgeries: Hysterectomy - [facility] INJECT/INFUSE NEC (02/26/13) INSPECTION OF BLADDER, ENDO (06/19/17) REPAIR PELVIC SUBCU/FASCIA, OPEN APPROACH (06/19/17) RESECTION OF BI FALLOPIAN TUBE, VIA OPENING W PERC ENDO (01/23/16) RESECTION OF BILATERAL OVARIES, VIA OPENING W PERC ENDO (01/23/16) RESECTION OF UTERUS, VIA OPENING W PERC ENDO (01/23/16) Family History: States: Unknown Family Hx - Social History Hx Tobacco Use: No Hx Alcohol Use: No Hx Substance Use: No - Immunization History Hx Tetanus Toxoid Vaccination: No Hx Influenza Vaccination: No Hx Pneumococcal Vaccination: No Review Of Systems Except As Marked, All Systems Reviewed And Found Negative. Constitutional: Negative for: Fever Cardiovascular: Negative for: Chest Pain Respiratory: Negative for: Shortness of Breath Gastrointestinal: Negative for: Vomiting Genitourinary: Positive for: Dysuria, Frequency, Pelvic Pain Musculoskeletal: Negative for: Neck Pain, Back Pain Neurological: Negative for: Weakness, Numbness Physical Exam - Physical Exam Appears: Non-toxic, No Acute Distress Skin: Normal Color, Warm, Dry Head: Atraumatic, Normacephalic Eye(s): bilateral: PERRL, EOMI Neck: Normal ROM, Supple Cardiovascular: Rhythm Regular Respiratory: Normal Breath Sounds, No Accessory Muscle Use Gastrointestinal/Abdominal: Soft, Tenderness (mild suprapubic), No Guarding, No Rebound Back: No CVA Tenderness Pelvic: Other (external exam shows surgical wounds, but no purulent discharge) Extremity: Normal ROM Neurological/Psych: Oriented x3, Normal Motor, Normal Sensation ED Course And Treatment - Laboratory Results Result Diagrams: 06/26/17 22:43 06/26/17 22:43 Interpretation Of Abnormal: Possible UTI, Urine C&S sent. Blood work normal. O2 Sat by Pulse Oximetry: 97 Pulse Ox Interpretation: Normal Progress - Interventions Interventions:: Observation, Intravenous fluid - Medications Administered Intravenous: NSAID - Data Reviewed Data Reviewed: Lab, Old records - Patient Status Patient status: Mostly improved - Continuity of Care Discussed patient case with:: Patient, Family-HIPPA compliant, ED Nurse - Patient Plan Patient Plan: Discharge, F/U with PCP Disposition Counseled Patient/Family Regarding: Studies Performed, Diagnosis, Need For Followup, Rx Given - Disposition Referrals: Zaire Hamilton [Staff Provider] - Disposition: HOME/ ROUTINE Disposition Time: 23:47 Condition: IMPROVED Additional Instructions: Drink plenty of fluids. Follow up with your Photography Intern within 1 week for further evaluation and treatment. Return to the ER if you develop fever, vomiting, worsening of symptoms or if you have any other concerns. Prescriptions: Ciprofloxacin [Cipro] 1 tab PO BID #10 tab Naproxen [Naprosyn] 1 tab PO BID PRN #20 tab PRN Reason: Pain Instructions: Pain Management After Surgery (GEN), Urinary Tract Infection in Women (ED) - Clinical Impression Clinical Impression: UTI (urinary tract infection), Pain following surgery or procedure
[2017-06-26 23:50] VITALS: BP 114/76; PULSE 82; RESP 18; TEMP 98.2
== END 2017-06-27 | disposition home or self-care (01) ==
LOC: C.ER 19:50
DX: N39.0 Urinary tract infection, site not specified (principal); G89.18 Other acute postprocedural pain
CPT/HCPCS: 80053; 81001; 84703; 85025; 87086; 96361; 96374; 99285; J1885; J7040

== ENCOUNTER 2018-12-30 15:31 | Emergency (ER) | payer OTHER ==
[2018-12-30 15:31] VITALS: BMI 33.5
[2018-12-30 15:52] VITALS: BP 109/78; PULSE 94; RESP 20; TEMP 99.2; O2SAT 100
--- NOTE | 2018-12-30 16:48 | RAD ---
Date of service: 12/30/2018 PROCEDURE: Left Foot Radiographs. HISTORY: Dorsal 2nd-4th metatarsal pain/tenderness r/o fx COMPARISON: None. TECHNIQUE: 3 views obtained. FINDINGS: BONES: Normal. No fracture. JOINTS: Normal. SOFT TISSUES: Normal. OTHER FINDINGS: None. IMPRESSION: No evidence of acute displaced fracture nor dislocation. If symptoms persist or occult fracture suspected clinically consider repeat radiographs in 7-10 days as most fractures should become radiographically evident in this timeframe.
--- NOTE | 2018-12-30 19:00 | C.PDOC ---
History Of Present Illness 43 y/o female presents to the ER complaining of left foot pain which has been present for the past 1 month. Patient states that she is able to ambulate but she has some tenderness. Patient reports that she takes Motrin or Tylenol occasionally for the pain. Denies having trauma, weakness, and numbness. Chief Complaint (Nursing): Lower Extremity Problem/Injury History Per: Patient History/Exam Limitations: no limitations Onset/Duration Of Symptoms: Days Current Symptoms Are (Timing): Still Present Severity: Moderate Past Medical History Reviewed: Historical Data, Nursing Documentation, Vital Signs Vital Signs: Last Vital Signs Temp 99.2 F 12/30/18 15:49 Pulse 94 H 12/30/18 15:49 Resp 20 12/30/18 15:49 BP 109/78 12/30/18 15:49 Pulse Ox 100 12/30/18 15:49 - Medical History PMH: Anemia (Iron difficiency) Denies: Chronic Kidney Disease Surgical History: Hernia Repair - [facility] Procedures INJECT/INFUSE NEC (02/26/13) INSPECTION OF BLADDER, ENDO (06/19/17) REPAIR PELVIC SUBCU/FASCIA, OPEN APPROACH (06/19/17) RESECTION OF BI FALLOPIAN TUBE, VIA OPENING W PERC ENDO (01/23/16) RESECTION OF BILATERAL OVARIES, VIA OPENING W PERC ENDO (01/23/16) RESECTION OF UTERUS, VIA OPENING W PERC ENDO (01/23/16) Family History: States: No Known Family Hx - Social History Hx Tobacco Use: No Hx Alcohol Use: No Hx Substance Use: No - Immunization History Hx Tetanus Toxoid Vaccination: No Hx Influenza Vaccination: No Hx Pneumococcal Vaccination: No Review Of Systems Except As Marked, All Systems Reviewed And Found Negative. Musculoskeletal: Positive for: Foot Pain (left foot pain) Neurological: Negative for: Weakness, Numbness Physical Exam - Physical Exam Appears: Non-toxic, No Acute Distress Skin: Normal Color, Warm, Dry Head: Atraumatic, Normacephalic Eye(s): bilateral: Normal Inspection Nose: Normal Oral Mucosa: Moist Neck: Supple Chest: Symmetrical Extremity: Normal ROM, Tenderness (tenderness to dorsal aspect of 3rd,4th, and 5th metatarsals), No Swelling Pulses: Left Dorsalis Pedis: Normal Neurological/Psych: Oriented x3, Normal Speech, Normal Motor, Normal Sensation ED Course And Treatment O2 Sat by Pulse Oximetry: 100 (RA) Pulse Ox Interpretation: Normal - Other Rad X-Ray-Left Foot X-Ray: Viewed By Me, Read By Radiologist Interpretation: Date of service: 12/30/2018. PROCEDURE: Left Foot Radiographs. HISTORY: Dorsal 2nd-4th metatarsal pain/tenderness r/o fx. COMPARISON: None. TECHNIQUE: 3 views obtained. FINDINGS: BONES: Normal. No fracture. JOINTS: Normal. SOFT TISSUES: Normal. OTHER FINDINGS: None. IMPRESSION: No evidence of acute displaced fracture nor dislocation. If sympt oms persist or occult fracture suspected clinically consider repeat radiographs in 7-10 days as most fractures should become radiographically evident in this timeframe. Medical Decision Making Medical Decision Making: Plan: --Motrin PO --X-Ray-Left Foot Disposition - Disposition Referrals: [facility] [Outside] Podiatry Clinic [Outside] Disposition: HOME/ ROUTINE Disposition Time: 16:45 Condition: GOOD Additional Instructions: JUAN CARLOS WILKINS, thank you for letting us take care of you today. The emergency medical care you received today was directed at your acute symptoms. If you were prescribed any medication, please fill it and take as directed. It may take several days for your symptoms to resolve. Return to the Emergency Department if your symptoms worsen, do not improve, or if you have any other problems. Please contact your doctor or call one of the physicians/clinics you have been referred to that are listed on the Patient Visit Information form that is inc luded in your discharge packet. Bring any paperwork you were given at discharge with you along with any medications you are taking to your follow up visit. Our treatment cannot replace ongoing medical care by a primary care provider outside of the emergency department. Thank you for allowing the [facility] team to be part of your care today. Follow up with the podiatry clinic in 3-5 days for re-evaluation and further management. Prescriptions: Ibuprofen [Motrin] 600 mg PO Q6 PRN #20 tab PRN Reason: Pain, Moderate (4-7) Instructions: Foot Sprain (DC) Forms: [facility] (Tristanian) - Clinical Impression Clinical Impression: Foot sprain - Scribe Statement The provider has reviewed the documentation as recorded by the Juan Alberto Fried Provider Attestation: All medical record entries made by the Javieribe were at my direction and personally dictated by me. I have reviewed the chart and agree that the record accurately reflects my personal performance of the history, physical exam, medical decision making, and the department course for this patient. I have also personally directed, reviewed, and agree with the discharge instructions and disposition.
== END 2018-12-30 17:33 | disposition home or self-care (01) ==
LOC: C.ER 15:31
DX: S93.602A Unspecified sprain of left foot, initial encounter (principal); X58.XXXA Exposure to other specified factors, initial encounter